=== PATIENT | female | born 1965 | race American Indian/Alaskan Native ===

== ENCOUNTER 2016-10-24 15:32 | Outpatient (CLI) | payer MEDICARE ==
--- NOTE | 2016-10-25 08:58 | XRay Report ---
METASTATIC SURVEY:10/24/16 CLINICAL: Possible multiple myeloma. No comparison. FINDINGS: Lateral skull: Negative Cervical spine: Negative Thoracic spine: Negative Lumbar spine: Negative Chest and ribs: Negative Bilateral humerus: Negative Pelvis and hips: Negative Bilateral femur: Negative Other findings: A large group of left upper quadrant abdominal calcifications with a pattern suggesting chronic calcific pancreatitis. Multiple large calcified uterine fibroids. IMPRESSION: Negative for neoplastic bone lesions.
== END 2016-10-24 15:33 | disposition home or self-care (01) ==
LOC: SPVIMAG 15:32
PROVIDERS: ATTEND Internal Medicine Hematology
DX: Z03.89 Encounter for observation for other suspected diseases and conditions ruled out (principal); D25.9 Leiomyoma of uterus, unspecified
CPT/HCPCS: 77074

== ENCOUNTER 2017-02-26 11:00 | Outpatient (CLI) | payer MEDICARE ==
--- NOTE | 2017-02-26 18:05 | Vascular Lab Report ---
Left Lower Extremity Venous Duplex Study: Reason for Exam: Edema of the left lower extremity. Comments on the Right: A limited duplex study was done of the proximal veins of the right lower extremity. All veins visualized are freely compressible without evidence of internal echogenicity. Flow is spontaneous and phasic throughout. No evidence of acute or chronic thrombus is seen in any of the vessels visualized. Comments on the Left: All veins visualized are freely compressible without evidence of internal echogenicity. Flow is spontaneous and phasic throughout. No evidence of acute or chronic thrombus is seen in any of the vessels visualized. Impression: No evidence of acute or chronic deep venous thrombosis in the left lower extremity.
== END 2017-02-26 11:01 | disposition home or self-care (01) ==
LOC: VAS 11:00
PROVIDERS: ATTEND Podiatrist Foot Surgery
DX: R60.0 Localized edema (principal)

== ENCOUNTER 2017-05-16 09:48 | Outpatient (CLI) | payer MEDICARE ==
--- NOTE | 2017-05-16 13:09 | Fluoroscopy Report ---
Voiding cyst urethrogram: Incontinence. Transurethral catheter was placed by our nurse. Cystografin was introduced by gravity with a total volume of approximately 325 cc before the patient became uncomfortable. Static imaging of the bladder is unremarkable. No reflux. In the semiupright position the patient was able to spontaneously void. There is a normal bladder contraction and urethral contour. There was complete emptying of contrast. No evidence of bladder prolapse. Impression: Normal exam.
== END 2017-05-16 09:49 | disposition home or self-care (01) ==
LOC: FLUORO 09:48
PROVIDERS: ATTEND Urology
DX: N39.46 Mixed incontinence (principal)
CPT/HCPCS: 51600; 74455; Q9958